=== PATIENT | female | born 1985 | race Caucasian/White ===

== ENCOUNTER 2024-03-23 12:55 | Inpatient (IN) | payer MEDICAID ==
[~2024-03-23] VITALS: Ht 152.4 cm; Wt 56.7 kg
[~2024-03-23 12:55] MED LIST: AMOX1TAB16 PO; PRED20TA PO
[2024-03-23] MEDS ORDERED: ONDANSETRON HCL/PF 4 MG/2 ML VIAL ONE (14:21)
[2024-03-23] MEDS ORDERED: MORPHINE SULFATE INJ 4 MG/ML DISP.SYRIN ONE (14:21)
[2024-03-23 14:28] LABS: BASOPHILS # (AUTO) 0.1 K/uL (0.0-0.2); BASOPHILS % (AUTO) 0.3 % (0.0-2.0); EOSINOPHILS # (AUTO) 0.1 K/uL (0.0-0.7); EOSINOPHILS % (AUTO) 0.4 % (0.0-6.0); HEMATOCRIT 53 % (33-45); HEMOGLOBIN 17.4 g/dL (11.5-14.8); LYMPHOCYTES # (AUTO) 2.4 K/uL (0.8-4.8); LYMPHOCYTES % (AUTO) 10.5 % (20.0-44.0); MEAN CORPUSCULAR HEMOGLOBIN 30 PG (26.0-33.0); MEAN CORPUSCULAR HGB CONC 33 g/dl (31.0-36.0); MEAN CORPUSCULAR VOLUME 91 fL (82-100); MONOCYTES # (AUTO) 2.4 K/uL (0.1-1.30); MONOCYTES % (AUTO) 10.2 % (2.0-12.0); NEUTROPHILS # (AUTO) 18.3 K/uL (1.8-8.9); NEUTROPHILS % (AUTO) 78.6 % (43.0-81.0); PLATELET COUNT (AUTO) 284 K/uL (150-450); RED CELL DISTRIBUTION WIDTH 14.8 % (11.5-15.0); WHITE BLOOD COUNT (AUTO) 23.3 K/uL (4.3-11.0)
[2024-03-23] MEDS: MORPHINE SULFATE INJ 2 MG/ML DISP.SYRIN IV ONE (14:29)
[2024-03-23] MEDS: ONDANSETRON HCL/PF 4 MG/2 ML VIAL IV ONE (14:29)
[2024-03-23] MEDS: IV NS 0.9% 1,000 ML BAG IV ONE (14:29)
[2024-03-23 14:42] LABS: ALBUMIN 4.1 g/dL (3.4-5.0); BILIRUBIN,DIRECT 0.1 mg/dL (0.0-0.2); BILIRUBIN,TOTAL 0.3 mg/dL (0.2-1.0); CALCIUM, SERUM 9.2 mg/dL (8.5-10.1); CREATININE 0.9 mg/dL (0.6-1.3); POTASSIUM 4.9 mmol/L (3.5-5.1); TOTAL PROTEIN, SERUM 8.5 g/dL (6.4-8.2)
[2024-03-23] MEDS ORDERED: LIDOCAINE VISCOUS 2% UD 15 ML UDC ONE (15:08)
[2024-03-23] MEDS ORDERED: FAMOTIDINE/PF INJ 20 MG/2 ML VIAL IV ONE (15:08)
[2024-03-23] MEDS ORDERED: MAG HYDROX/AL HYDROX/SIMETH 30 ML UDC ONE (15:08)
[2024-03-23] MEDS: LIDOCAINE VISCOUS 2% UD 15 ML UDC MM ONE (15:26)
[2024-03-23] MEDS: MAG HYDROX/AL HYDROX/SIMETH 30 ML UDC PO ONE (15:26)
[2024-03-23] MEDS: FAMOTIDINE/PF INJ 20 MG/2 ML VIAL IV ONE (15:26)
[2024-03-23 15:40] LABS: APPEARANCE,URINE CLEAR (CLEAR); BILIRUBIN,URINE NEGATIVE (NEGATIVE); BLOOD, URINE NEGATIVE Ery/uL (NEGATIVE); COLOR,URINE YELLOW (YELLOW); KETONES,URINE NEGATIVE (NEGATIVE); LEUKOCYTE ESTERASE ,URINE TRACE (NEGATIVE); NITRITE, URINE NEGATIVE (NEGATIVE); PROTEIN,URINE TRACE mg/dl (NEGATIVE); UGLUCOSE NEGATIVE (NEGATIVE); UROBILINOGEN,URINE 0.2 EU/dL (0.2)
[2024-03-23 15:42] LABS: PREGNANCY TEST URINE QUAL NEGATIVE (NEGATIVE)
[2024-03-23] MEDS ORDERED: IOHEXOL-300 100 ML VIAL IV ONE (15:55)
[2024-03-23] MEDS ORDERED: IV NS 0.9% 250 ML IV ONE (15:55)
[2024-03-23 16:21] LABS: ADD URINE CULTURE YES; BACTERIA,URINE Rare /HPF (None Seen); RBC,URINE 0-2 /HPF (0-2); SQUAMOUS EPITHELIAL CELL,UR Few /HPF (None Seen)
[2024-03-23] MEDS ORDERED: CLON1TAB12 PO (17:22)
[2024-03-23] MEDS ORDERED: IPRA3AMP23 NEB (17:22)
[2024-03-23] MEDS ORDERED: BUPR8TAB4 SL (17:22)
[2024-03-23] MEDS ORDERED: ALBU6.7H9 IH (17:22)
[2024-03-23] MEDS ORDERED: LISD50CA2 PO (17:22)
[2024-03-23 18:10] VITALS: BP 115/84; TEMP 98.8; O2SAT 98
[2024-03-23] MEDS ORDERED: ACETAMINOPHEN 325 MG TABLET PO PRN (19:30)
[2024-03-23] MEDS: IV NS 0.9% 1,000 ML IV PRN (19:32)
[2024-03-23 20:00] VITALS: BP 105/72; TEMP 98.8; O2SAT 98
[2024-03-24] VITALS: BP 102/70; TEMP 97.9; O2SAT 97
[2024-03-24] MEDS: MORPHINE SULFATE INJ 2 MG/ML DISP.SYRIN IV PRN (00:05)
[2024-03-24 04:00] VITALS: BP 104/72; TEMP 97.9; O2SAT 97
[2024-03-24 07:03] LABS: BASOPHILS % (AUTO) 0.3 % (0.0-2.0); EOSINOPHILS # (AUTO) 0.3 K/uL (0.0-0.7); EOSINOPHILS % (AUTO) 3.1 % (0.0-6.0); HEMATOCRIT 43 % (33-45); LYMPHOCYTES # (AUTO) 3.6 K/uL (0.8-4.8); MEAN CORPUSCULAR HEMOGLOBIN 30 PG (26.0-33.0); MEAN CORPUSCULAR HGB CONC 33 g/dl (31.0-36.0); MEAN CORPUSCULAR VOLUME 92 fL (82-100); MONOCYTES # (AUTO) 0.7 K/uL (0.1-1.30); MONOCYTES % (AUTO) 8.1 % (2.0-12.0); NEUTROPHILS % (AUTO) 46.5 % (43.0-81.0); PLATELET COUNT (AUTO) 223 K/uL (150-450); RED BLOOD CELL COUNT(AUTO) 4.65 MIL/uL (4.0-5.2); RED CELL DISTRIBUTION WIDTH 14.6 % (11.5-15.0); WHITE BLOOD COUNT (AUTO) 8.6 K/uL (4.3-11.0)
[2024-03-24 07:22] LABS: CALCIUM, SERUM 7.4 mg/dL (8.5-10.1); CREATININE 0.8 mg/dL (0.6-1.3); MAGNESIUM 2.1 mg/dL (1.8-2.4); PHOSPHORUS 1.9 mg/dL (2.5-4.9); POTASSIUM 3.5 mmol/L (3.5-5.1)
[2024-03-24 08:00] VITALS: BP 115/76; TEMP 98.2; O2SAT 100
[2024-03-24 08:11] LABS: THYROID STIMULATING HORMONE 1.31 uIU/mL (0.358-3.74)
[2024-03-24] MEDS: ONDANSETRON HCL/PF 4 MG/2 ML VIAL IVP PRN (09:44)
[2024-03-24 12:00] VITALS: BP 110/73; TEMP 98.5; O2SAT 100
[2024-03-24 16:00] VITALS: BP 105/70; TEMP 98; O2SAT 98
[2024-03-24] MEDS: K PHOS NEUTRAL 250 MG TABLET PO ONE (17:44)
[2024-03-24 20:00] VITALS: BP 112/91; TEMP 98.2; O2SAT 99
[2024-03-25 04:00] VITALS: BP 116/80; TEMP 98; O2SAT 100
[2024-03-25 06:51] LABS: CALCIUM, SERUM 7.6 mg/dL (8.5-10.1); CREATININE 0.8 mg/dL (0.6-1.3); PHOSPHORUS 3.2 mg/dL (2.5-4.9); POTASSIUM 3.7 mmol/L (3.5-5.1)
[2024-03-25 08:00] VITALS: BP 110/82; TEMP 97.4
[2024-03-25 12:06] VITALS: BP 110/82; TEMP 97.4; O2SAT 100
== END 2024-03-25 12:40 | disposition home or self-care (01) | DRG 282 ==
LOC: ER 13:00 → TELE-TD 18:42 → MEDSG1 19:15
DX: K85.90 Acute pancreatitis without necrosis or infection, unspecified (principal); F10.21 Alcohol dependence, in remission; F64.0 Transsexualism; J45.909 Unspecified asthma, uncomplicated; R74.01 Elevation of levels of liver transaminase levels
CPT/HCPCS: 36415; 80048-TC; 80061-TC; 80076-TC; 81001; 83690-TC; 83735-TC; 84100-TC; 84443-TC; 84703-TC; 85025-TC; 87086-TC; A4223; G0378; J2270; J2405; J3490; J7030; J7050; Q9967